=== PATIENT | male | born 1990 | race Caucasian/White ===

== ENCOUNTER 2024-07-02 06:09 | Emergency (ER) | payer BC ==
[2024-07-02] MEDS: Diphtheria,Pertussis(Acell),Tetanus Vaccine 0.5 ML Syringe IM ONE (06:45)
[2024-07-02] MEDS: Lidocaine 2% with EPINEPHrine 1:200,000 20 ML SDV INJECT ONE (06:48)
== END 2024-07-02 07:03 | disposition home or self-care (01) ==
LOC: MW.ED 06:09
DX: S01.01XA Laceration without foreign body of scalp, initial encounter (principal); Z23 Encounter for immunization; X50.9XXA Other and unspecified overexertion or strenuous movements or postures, initial encounter
CPT/HCPCS: 12002; 90471; 90715; 99282-25; J3490